=== PATIENT | female | born 1945 | race Caucasian/White ===

== ENCOUNTER 2018-09-16 09:28 | Emergency (ER) | payer OTHER ==
[2018-09-16 10:50] LABS: Absolute Lymphocytes (CBC) 1.8 K/uL (0.7-4.9); Absolute Monocytes 1.6 K/uL (0.1-1.3); Absolute Neutrophil 14.7 K/uL (1.8-8.0); Basophils % 0.4 % (0-1.3); Eosinophils % 0.3 % (0-4.4); Hematocrit 35.3 % (36.0-45.0); Lymphocytes % 9.8 % (15.3-44.8); Monocytes % 8.8 % (3.3-12.3); RBC Red Blood Cell Count 4.11 M/uL (3.86-4.86)
[2018-09-16 10:58] LABS: Urine Bacteria NONE SEEN /HPF (<20); Urine Culture Reflex Order NOT NEEDED; Urine RBC <5 /HPF (NONE SEEN)
[2018-09-16 11:09] LABS: Bilirubin Direct 0.2 mg/dL (0-0.2); Bilirubin Total 0.7 mg/dL (0.2-1.0); Potassium 4.3 mmol/L (3.5-5.1); Protein, Total 7.2 g/dL (6.4-8.2)
[2018-09-16] MEDS ORDERED: MORPHINE 4 MG/ML SYR ONE (11:13)
[2018-09-16] MEDS ORDERED: ONDANSETRON 4 MG/2 ML VIAL ONE (11:13)
[2018-09-16] MEDS ORDERED: NA CHLORIDE 0.9% 1,000 ML ONE (11:14)
--- NOTE | 2018-09-16 11:39 | RAD REPORT ---
EXAM DESCRIPTION: CT - Abdomen Pelvis W Contrast - 09/16/2018 11:21 am CLINICAL HISTORY: Abdominal pain ./ vomiting and diarrhea COMPARISON: May 2018 TECHNIQUE: Computed axial tomography of the abdomen pelvis was obtained. 100 cc Isovue-300 was admin istered intravenously. Oral contrast was not requested which limits evaluation of bowel. All CT scans are performed using dose optimization technique as appropriate and may include automated exposure control or mA/KV adjustment according to patient size. FINDINGS: The liver, spleen, pancreas, adrenal and kidneys appear unremarkable. Moderate thickening of the wall of the distal transverse and descending colon. Pneumatosis stenosis i ntestinalis is not seen Simall amount ascites . 23 millimeter left ovarian cyst IMPRESSION: Moderate left colitis
[2018-09-16 12:39] LABS: Urine Blood 1+ (NEG); Urine Glucose NEGATIVE (NEG); Urine Protein NEGATIVE (NEG); Urine Specific Gravity <1.005 (1.005-1.030); Urine pH 5.5 (5.0-7.0)
[2018-09-16] MEDS ORDERED: METRONIDAZOLE 500mg IVPB 500 MG/100 ML BAG IV ONE (12:43)
[2018-09-16] MEDS ORDERED: CIPROFLOXACIN HCL 500 MG TAB ONE (12:43)
--- NOTE | 2018-09-16 13:27 | EDPHYS ---
Physician Documentation [facility] Name: Elsa Kelsey Age: 72 yrs Sex: Female : 1945 Arrival Date: 09/16/2018 Time: 09:30 Bed 7 Private MD: Destiney Blanco ED Physician Leoncio Breen HPI: 09/16 10:57 This 72 yrs old Female presents to ER via Wheelchair with complaints of pm1 Abdominal Pain, Nausea/Vomiting. 10:57 The patient presents with abdominal pain in the lower abdomen. Onset: The pm1 symptoms/episode began/occurred 3 day(s) ago. The symptoms do not radiate. Associated signs and symptoms: Pertinent positives: nausea and vomiting, diarrhea, subjective fever, Pertinent negatives: chest pain, constipation, dysuria, shortness of breath. The symptoms are described as sharp. Modifying factors: The symptoms are alleviated by nothing, the symptoms are aggravated by coughing, walking, positioning, lying down. Severity of pain: in the emergency department the pain is actually worse is a 8 / 10. The patient has not experienced similar symptoms in the past. The patient has not recently seen a physician, the patient's primary care provider is Dr. Blanco. Friday with onset of abdominal pain, nausea, vomiting, and diarrhea. Nausea, vomiting, and diarrhea resolved the next day but the abdominal pain has continued until today. Historical: - Allergies: 10:10 No Known Allergies; iw - Home Meds: 10:10 lisinopril 20 mg Oral tab 1 tab once daily [Active]; duloxetine 60 mg oral cpDR 1 cap iw once daily [Active]; clonazepam 0.5 mg Oral TbDL 1 tab as needed [Active]; zolpidem 10 mg Oral tab 1 tab once daily [Active]; atorvastatin 20 mg oral tab 1 tab once daily [Active]; alendronate 70 mg oral tab 1 tab once wkly [Active]; - PMHx: 10:10 Hypertension; Depression; iw - PSHx: 10:10 Knee surgery; neck; iw - Immunization history:: Adult Immunizations up to date. - Social history:: Smoking status: . - Ebola Screening: : Patient negative for fever greater than or equal to 101.5 degrees Fahrenheit, and additional compatible Ebola Virus Disease symptoms Patient denies exposure to infectious person Patient denies travel to an Ebola-affected area in the 21 days before illness onset. ROS: 10:57 Constitutional: Negative for fever, chills, and weight loss, Eyes: Negative for injury, pm1 pain, redness, and discharge, ENT: Negative for injury, pain, and discharge, Neck: Negative for injury, pain, and swelling, Cardiovascular: Negative for chest pain, palpitations, and edema, Respiratory: Negative for shortness of breath, cough, wheezing, and pleuritic chest pain. 10:57 Back: Negative for injury and pain, : Negative for injury, bleeding, discharge, and swelling, MS/Extremity: Negative for injury and deformity, Skin: Negative for injury, rash, and discoloration, Neuro: Negative for headache, weakness, numbness, tingling, and seizure. 10:57 Abdomen/GI: Positive for abdominal pain, nausea, vomiting, and diarrhea, Noticed some blood in her diarrhea on Friday. No blood in her stool from Friday until today, Negative for constipation. Exam: 10:57 Constitutional: This is a well developed, well nourished patient who is awake, alert, pm1 and in no acute distress. Head/Face: Normocephalic, atraumatic. Eyes: Pupils equal round and reactive to light, extra-ocular motions intact. Lids and lashes normal. Conjunctiva and sclera are non-icteric and not injected. Cornea within normal limits. Periorbital areas with no swelling, redness, or edema. ENT: Nares patent. No nasal discharge, no septal abnormalities noted. Tympanic membranes are normal and external auditory canals are clear. Oropharynx with no redness, swelling, or masses, exudates, or evidence of obstruction, uvula midline. Mucous membranes moist. Neck: Trachea midline, no thyromegaly or masses palpated, and no cervical lymphadenopathy. Supple, full range of motion without nuchal rigidity, or vertebral point tenderness. No Meningismus. Chest/axilla: Normal chest wall appearance and motion. Nontender with no deformity. No lesions are appreciated. Cardiovascular: Regular rate and rhythm with a normal S1 and S2. No gallops, murmurs, or rubs. Normal PMI, no JVD. No pulse deficits. Respiratory: Lungs have equal breath sounds bilaterally, clear to auscultation and percussion. No rales, rhonchi or wheezes noted. No increased work of breathing, no retractions or nasal flaring. 10:57 Skin: Warm, dry with normal turgor. Normal color with no rashes, no lesions, and no evidence of cellulitis. MS/ Extremity: Pulses equal, no cyanosis. Neurovascular intact. Full, normal range of motion. 10:57 Abdomen/GI: Inspection: abdomen appears normal, Bowel sounds: normal, Palpation: soft, mild abdominal tenderness, in the right lower quadrant and left lower quadrant, mass, is not appreciated, rebound tenderness, is not appreciated. 10:57 Back: pain, that is mild, of the left low back, ROM is normal, normal spinal alignment noted, vertebral tenderness, is not appreciated. 10:57 Neuro: Orientation: is normal, Motor: is normal, moves all fours. Vital Signs: 10:07 BP 129 / 68; Pulse 86; Resp 16 S; Temp 98.3(TE); Pulse Ox 98% on R/A; Pain 7/10; iw 11:00 BP 119 / 66; Pulse 87; Resp 14; Pulse Ox 98% ; bp 12:30 BP 128 / 76; Pulse 75; Resp 14; Pulse Ox 99% ; bp 13:45 BP 108 / 62; Pulse 97; Resp 14; Pulse Ox 98% ; bp MDM: 10:05 Patient medically screened. pm1 11:01 Data reviewed: vital signs. Data interpreted: Pulse oximetry: on room air is 98 %. pm1 Interpretation: normal. 13:24 Counseling: I had a detailed discussion with the patient and/or guardian regarding: the pm1 historical points, exam findings, and any diagnostic results supporting the discharge/admit diagnosis, lab results, radiology results, to return to the emergency department if symptoms worsen or persist or if there are any questions or concerns that arise at home. 13:24 ED course: Discussed with patient elevated WBC and area of colitis. Offered admission pm1 to patient but patient would like to go home. Patient is not vomiting, able to take medications, and has good family support at home. Educated on return precautions to the ER and followup with Dr. Eisenberg. 09/16 10:14 Order name: Basic Metabolic Panel pm1 09/16 10:14 Order name: CBC with Diff; Complete Time: 10:56 pm1 09/16 10:14 Order name: Creatinine for Radiology; Complete Time: 11:14 pm1 09/16 10:14 Order name: Hepatic Function; Complete Time: 11:14 pm1 09/16 10:14 Order name: Lipase; Complete Time: 11:14 pm1 09/16 10:14 Order name: Urine Microscopic Only; Complete Time: 11:02 pm1 09/16 10:14 Order name: CT Abd/Pelvis - W/Contrast: IV contrast; Complete Time: 11:58 pm1 09/16 10:15 Order name: Basic Metabolic Panel; Complete Time: 11:14 EDMS 09/16 10:45 Order name: Urine Dipstick--Ancillary (enter results); Complete Time: 12:41 em1 09/16 10:14 Order name: IV Saline Lock; Complete Time: 10:44 pm1 09/16 10:14 Order name: Labs collected and sent; Complete Time: 10:44 pm1 09/16 10:14 Order name: Urine Dipstick-Ancillary (obtain specimen); Complete Time: 10:44 pm1 Administered Medications: 10:20 Drug: NS 0.9% 1000 ml Route: IV; Rate: 1000 ml; Site: right forearm; bp 10:20 Drug: morphine 4 mg Route: IVP; Site: right forearm; bp 12:08 Follow up: Response: Pain is decreased bp 10:20 Drug: Zofran 4 mg Route: IVP; Site: right forearm; bp 12:09 Follow up: Response: Nausea is decreased bp 12:30 Drug: Flagyl 500 mg Volume: 100 ml; Route: IVPB; Rate: 200 ml/hr; Infused Over: 30 bp mins; Site: right forearm; 12:30 Drug: Cipro 500 mg Route: PO; bp 13:57 Follow up: Response: No adverse reaction bp Disposition: 16:57 Co-signature as Attending Physician, Leoncio Breen MD I agree with the assessment and kdr plan of care. Disposition: 09/16/18 13:27 Discharged to Home. Impression: Left sided colitis. - Condition is Stable. - Discharge Instructions: Colitis. - Prescriptions for Flagyl 500 mg Oral Tablet - take 1 tablet by ORAL route every 8 hours for 10 days; 30 tablet. Tylenol- Codeine #3 300-30 mg Oral Tablet - take 2 tablets by ORAL route every 6 hours As needed; 20 tablet. Cipro 500 mg Oral Tablet - take 1 tablet by ORAL route every 12 hours for 10 days; 20 tablet. - Thank You Letter, Antibiotic Education, Prescription Opioid Use, Medication Reconciliation Form, SBAR form form. - Follow up: Emergency Department; When: As needed; Reason: Worsening of condition. Follow up: Erich Eisenberg MD; When: 2 - 3 days; Reason: Recheck today's complaints, Continuance of care, Re-evaluation by your physician. - Problem is new. - Symptoms have improved. Signatures: Dispatcher [employer] EDMS Leoncio Breen MD MD [facility] Desiree Jackson RN RN iw Bienvenido Cai NP TRAINING ASSISTANT pm1 Danny Acosta RN RN bp Corrections: (The following items were deleted from the chart) 13:59 13:27 09/16/2018 13:27 Discharged to Home. Impression: Left sided colitis. Condition is bp Stable. Forms are Medication Reconciliation Form, SBAR form, Thank You Letter, Antibiotic Education, Prescription Opioid Use. Follow up: Emergency Department; When: As needed; Reason: Worsening of condition. Follow up: Erich Eisenberg; When: 2 - 3 days; Reason: Recheck today's complaints, Continuance of care, Re-evaluation by your physician. Problem is new. Symptoms have improved. pm1
--- NOTE | 2018-09-16 13:27 | ER ---
Nurse's Notes [facility] Name: Elsa Kelsey Age: 72 yrs Sex: Female : 1945 Arrival Date: 09/16/2018 Time: 09:30 Bed 7 Private MD: Destiney Blanco Diagnosis: Left sided colitis Presentation: 09/16 10:02 Presenting complaint: Patient states: lower abd pain since Friday, vomiting and iw diarrhea on Friday and Friday, resolved at this time, pt has not been eating much, able to tolerate fluids. Transition of care: patient was not received from another setting of care. Onset of symptoms was September 13, 2018. Risk Assessment: Do you want to hurt yourself or someone else? Patient reports no desire to harm self or others. Initial Sepsis Screen: Does the patient meet any 2 criteria? No. Patient's initial sepsis screen is negative. Does the patient have a suspected source of infection? No. Patient's initial sepsis screen is negative. Care prior to arrival: None. 10:02 Method Of Arrival: Wheelchair iw 10:02 Acuity: LUKAS 3 iw Triage Assessment: 10:10 General: Appears in no apparent distress. uncomfortable, Behavior is calm, cooperative, bp appropriate for age. Historical: - Allergies: 10:10 No Known Allergies; iw - Home Meds: 10:10 lisinopril 20 mg Oral tab 1 tab once daily [Active]; duloxetine 60 mg oral cpDR 1 cap iw once daily [Active]; clonazepam 0.5 mg Oral TbDL 1 tab as needed [Active]; zolpidem 10 mg Oral tab 1 tab once daily [Active]; atorvastatin 20 mg oral tab 1 tab once daily [Active]; alendronate 70 mg oral tab 1 tab once wkly [Active]; - PMHx: 10:10 Hypertension; Depression; iw - PSHx: 10:10 Knee surgery; neck; iw - Immunization history:: Adult Immunizations up to date. - Social history:: Smoking status: . - Ebola Screening: : Patient negative for fever greater than or equal to 101.5 degrees Fahrenheit, and additional compatible Ebola Virus Disease symptoms Patient denies exposure to infectious person Patient denies travel to an Ebola-affected area in the 21 days before illness onset. Screenin:20 Abuse screen: Denies threats or abuse. Denies injuries from another. Nutritional bp screening: No deficits noted. Tuberculosis screening: No symptoms or risk factors identified. Fall Risk None identified. Assessment: 10:10 General: Appears in no apparent distress. uncomfortable, Behavior is calm, cooperative, bp appropriate for age. Pain: Complains of pain in left lower quadrant and right lower quadrant. Neuro: Level of Consciousness is awake, alert, obeys commands, Oriented to person, place, time, situation, Appropriate for age. Cardiovascular: No deficits noted. Respiratory: Airway is patent Respiratory effort is even, unlabored, Respiratory pattern is regular, symmetrical. GI: Bowel sounds present X 4 quads. Abd is soft X 4 quads. : No signs and/or symptoms were reported regarding the genitourinary system. EENT: No deficits noted. Derm: No deficits noted. Musculoskeletal: Circulation, motion, and sensation intact. Range of motion: intact in all extremities. 11:00 Reassessment: ALL CURRENT ORDERS COMPLETED, IVF INFUSING. bp 12:39 Reassessment: ABX INFUSING, DISPO PENDING. bp 13:57 Reassessment: PT D/C HOME AMBULATORY WITH FAMILY, DX WITH COLITIS. bp Vital Signs: 10:07 BP 129 / 68; Pulse 86; Resp 16 S; Temp 98.3(TE); Pulse Ox 98% on R/A; Pain 7/10; iw 11:00 BP 119 / 66; Pulse 87; Resp 14; Pulse Ox 98% ; bp 12:30 BP 128 / 76; Pulse 75; Resp 14; Pulse Ox 99% ; bp 13:45 BP 108 / 62; Pulse 97; Resp 14; Pulse Ox 98% ; bp ED Course: 09:30 Patient arrived in ED. mr 09:31 Destiney Blanco MD is Private Physician. mr 09:53 Danny Acosta, MAHENDRA is Primary Nurse. bp 10:04 Bienvenido Cai NP is PHCP. pm1 10:04 Leoncio Breen MD is Attending Physician. pm1 10:06 Triage completed. iw 10:10 Arm band placed on. iw 10:20 Patient has correct armband on for positive identification. Bed in low position. Call bp light in reach. Side rails up X2. Adult w/ patient. 10:30 Inserted saline lock: 20 gauge in right forearm, using aseptic technique. Blood bp collected. 10:44 Urine collected: clean catch specimen, cloudy, pedro colored. jb1 11:22 CT completed. Patient tolerated procedure well. Patient moved to CT via wheelchair. sj Patient moved back from CT. 11:24 CT Abd/Pelvis - W/Contrast: IV contrast In Process Unspecified. EDMS 13:26 Erich Eisenberg MD is Referral Physician. pm1 13:59 No provider procedures requiring assistance completed. Patient admitted, IV remains in bp place. Administered Medications: 10:20 Drug: NS 0.9% 1000 ml Route: IV; Rate: 1000 ml; Site: right forearm; bp 10:20 Drug: morphine 4 mg Route: IVP; Site: right forearm; bp 12:08 Follow up: Response: Pain is decreased bp 10:20 Drug: Zofran 4 mg Route: IVP; Site: right forearm; bp 12:09 Follow up: Response: Nausea is decreased bp 12:30 Drug: Flagyl 500 mg Volume: 100 ml; Route: IVPB; Rate: 200 ml/hr; Infused Over: 30 bp mins; Site: right forearm; 12:30 Drug: Cipro 500 mg Route: PO; bp 13:57 Follow up: Response: No adverse reaction bp Outcome: 13:27 Discharge ordered by MD. pm1 13:58 Discharged to home ambulatory, with family. bp 13:58 Condition: stable 13:58 Discharge instructions given to patient, Instructed on discharge instructions, follow up and referral plans. medication usage, Demonstrated understanding of instructions, follow-up care, medications, Prescriptions given X 3. 13:59 Patient left the ED. bp Signatures: Dispatcher [employer] EDMS Chava Fried jb1 Corinne Negro, Nicky Desiree Ramirez, RN RN iw Bienvenido Cai, INDEPENDENT BEAUTY CONSULTANT INDEPENDENT BEAUTY CONSULTANT pm1 Danny Acosta, MAHENDRA RN bp Corrections: (The following items were deleted from the chart) 10:10 10:07 BP 129 / 68; Pulse 86bpm; Resp 16bpm; Spontaneous; Pulse Ox 98% RA; Pain 01/20; iw iw
== END 2018-09-16 13:59 | disposition home or self-care (01) ==
LOC: ER 09:28
DX: K51.50 Left sided colitis without complications (principal); I10 Essential (primary) hypertension; F32.9 Major depressive disorder, single episode, unspecified
CPT/HCPCS: 85025; 80048; 36415; 80076; 83690; 74177; Q9967; J7030; J2405; 81003; 81015; 96374; 96375; 99284